=== PATIENT | male | born 1955 | race American Indian/Alaskan Native ===

== ENCOUNTER 2022-04-20 20:51 | Emergency (ER) | payer SELFPAY ==
--- NOTE | 2022-04-21 05:20 | Emergency Department Report ---
ED General Adult HPI - General Chief complaint: Recheck/Abnormal Lab/Rx Stated complaint: PRECRIPTION REFILL Source: patient Mode of arrival: Ambulatory Limitations: No Limitations - History of Present Illness Initial comments: Patient is a 66-year-old -Malag[place] male with history of [id number] diabetes and hypertension who presents to the ED requesting for refill of medications. Patient states that he ran out of his diabetes medications and would relic a refill of the same. Patient states that he ran out of these medications 2 weeks ago. Patient denies dizziness, syncope chest pain or shortness of breath, cough, headache, abdominal pain, nausea and vomiting or diarrhea. MD Complaint: Medication refills -: Gradual, week(s) (2) Radiation: non-radiation Severity scale (0 -10): 0 Quality: dull Consistency: intermittent Improves with: none Worsens with: none Associated Symptoms: denies other symptoms, malaise. denies: confusion, chest pain, cough, diaphoresis, fever/chills, headaches, loss of appetite, nausea/vomiting, rash, seizure, shortness of breath, syncope, weakness Treatments Prior to Arrival: none - Related Data Previous Rx's Medication Instructions Recorded Last Taken Type Insulin NPH Hum/Reg Insulin Hm 20 unit SQ Q8H #1 vial 04/21/22 Unknown Rx [Humulin 70-30 Vial] Metformin HCl [metFORMIN] 500 mg PO Q12H #60 tab 04/21/22 Unknown Rx Allergies Allergy/AdvReac Type Severity Reaction Status Date / Time No Known Allergies Allergy Verified 04/20/22 22:13 ED Review of Systems ROS: Stated complaint: PRECRIPTION REFILL Other details as noted in HPI Constitutional: denies: chills, fever Eyes: denies: eye pain, eye discharge, vision change ENT: denies: ear pain, throat pain Respiratory: denies: cough, shortness of breath, wheezing Cardiovascular: denies: chest pain, palpitations Endocrine: no symptoms reported Gastrointestinal: denies: abdominal pain, nausea, diarrhea Genitourinary: denies: urgency, dysuria Musculoskeletal: denies: back pain, joint swelling, arthralgia Skin: denies: rash, lesions Neurological: denies: headache, weakness, paresthesias Psychiatric: denies: anxiety, depression Hematological/Lymphatic: denies: easy bleeding, easy bruising ED Past Medical Hx - Past Medical History Hx Hypertension: Yes Hx Diabetes: Yes - Medications Home Medications: Home Medications Medication Instructions Recorded Confirmed Last Taken Type Insulin NPH Hum/Reg Insulin Hm 20 unit SQ Q8H #1 vial 04/21/22 Unknown Rx [Humulin 70-30 Vial] Metformin HCl [metFORMIN] 500 mg PO Q12H #60 tab 04/21/22 Unknown Rx ED Physical Exam - General Limitations: No Limitations General appearance: alert, in no apparent distress - Head Head exam: Present: atraumatic, normocephalic, normal inspection - Eye Eye exam: Present: normal appearance, PERRL, EOMI Pupils: Present: normal accommodation - ENT ENT exam: Present: normal exam, normal orophraynx, mucous membranes moist, TM's normal bilaterally, normal external ear exam - Neck Neck exam: Present: normal inspection, full ROM. Absent: tenderness - Respiratory Respiratory exam: Present: normal lung sounds bilaterally. Absent: respiratory distress, wheezes, rales, rhonchi, chest wall tenderness, accessory muscle use, decreased breath sounds, prolonged expiratory - Cardiovascular Cardiovascular Exam: Present: normal rhythm, tachycardia, normal heart sounds. Absent: systolic murmur, diastolic murmur, rubs, gallop - GI/Abdominal GI/Abdominal exam: Present: soft, normal bowel sounds. Absent: tenderness, guarding, rebound, hyperactive bowel sounds, hypoactive bowel sounds, organomegaly, mass - Extremities Exam Extremities exam: Present: normal inspection, full ROM, normal capillary refill. Absent: tenderness - Back Exam Back exam: Present: normal inspection, full ROM. Absent: tenderness, CVA tenderness (R), muscle spasm, paraspinal tenderness, vertebral tenderness - Neurological Exam Neurological exam: Present: alert, oriented X3, CN II-XII intact, normal gait, reflexes normal - Psychiatric Psychiatric exam: Present: normal affect, normal mood - Skin Skin exam: Present: warm, dry, intact, normal color. Absent: rash ED Course Vital Signs 04/20/22 21:40 Temperature 98.3 F Pulse Rate 103 H Respiratory 18 Rate Blood Pressure 99/64 O2 Sat by Pulse 100 Oximetry ED Medical Decision Making - Medical Decision Making This is a 66-year-old -Malag[place] male with history of non-insulin- dependent diabetes and hypertension who presents to the ED requesting for refill of medications. Patient states that he ran out of his diabetes medications and would relic a refill of the same. Patient states that he ran out of these medications 2 weeks ago. In the ED, patient is alert and oriented x3 and is not in any distress. Patient medications were refilled for him and patient was given a referral to a primary care physician. Patient was advised to contact her primary care physician Dr. Mary in 5 to 7 days for reevaluation. Patient was advised return to the ED immediately if symptoms get worse. - Differential Diagnosis Medication refills; Critical care attestation.: If time is entered above; I have spent that time in minutes in the direct care of this critically ill patient, excluding procedure time. ED Disposition Clinical Impression: Encounter for medication refill Type 2 diabetes mellitus Qualifiers: Diabetes mellitus residential insulin use: without residential use Proliferative retinopathy type: stable Disposition: 01 HOME / SELF CARE / HOMELESS Is pt being admited?: No Condition: Stable Instructions: Diabetes Mellitus Type 2 in Adults (ED), Type 2 Diabetes Mellitus, Self Care, Adult, [id number] Additional Instructions: Take your regular medications. Follow-up with your primary care physician in 7 to 10 days for reevaluation. Return to the ED immediately if symptoms get worse Prescriptions: Insulin NPH Hum/Reg Insulin Hm [Humulin 70-30 Vial] 20 unit SQ Q8H #1 vial Metformin HCl [metFORMIN] 500 mg PO Q12H #60 tab Referrals: LISA MARY MD [Staff Physician] - 7-10 days [facility] [Provider Group] - 7-10 days ROSE MONTANEZ MD [Staff Physician] - 7-10 days Time of Disposition: 05:21 Print Language: CHINESE
[2022-04-21 05:48] VITALS: BP 112/74
== END 2022-04-21 05:50 | disposition home or self-care (01) ==
LOC: ED 20:51
DX: E11.9 Type 2 diabetes mellitus without complications (principal); Z76.0 Encounter for issue of repeat prescription
CPT/HCPCS: 99282